=== PATIENT | female | born 1935 | race Caucasian/White ===

== ENCOUNTER 2020-07-21 08:59 | Inpatient (IN) | payer OTHER ==
[2020-07-21 09:35] LABS: BASOPHIL 0.2 % (0-2); EOSINOPHIL 0.1 % (0-7); HCT 42.3 % (37.0-47.0); HGB 13.8 g/dl (12.5-16.0); LYMPHOCYTE 6.2 % (15-48); MCH 31.3 pg (25.0-31.0); MCHC 32.6 g/dL (32.0-36.0); MCV 95.9 fL (78.0-100.0); MONOCYTE 6.8 % (0-12); MPV 11.5 fL (6.0-9.5); NRBC 0; PLT 176 K/uL (150-400); RBC 4.41 M/uL (4.20-5.40); RDW 14.9 % (11.5-14.0); WBC 13.4 K/uL (4.0-10.5)
[2020-07-21 09:46] LABS: INR 1.14 (0.9-1.2); PROTHROMBIN TIME 13.9 SECONDS (11.4-13.6); PTT 28.2 SECONDS (22.2-34.7)
[2020-07-21 09:53] LABS: BILIRUBIN NEGATIVE (NEGATIVE); BLOOD 1+ Ery/uL (NEGATIVE); CLARITY CLEAR (CLEAR); COLOR YELLOW (YELLOW); GLUCOSE (U) NORMAL (NORMAL); LEUKOCYTES NEGATIVE Leu/uL (NEGATIVE); NITRITE NEGATIVE (NEGATIVE); PROTEIN 2+ mg/dL (NEGATIVE); SPECIFIC GRAVITY 1.025 (1.001-1.030)
[2020-07-21 10:03] LABS: BACTERIA TRACE
[2020-07-21 10:06] LABS: ALBUMIN 3.6 g/dL (3.4-5.0); BILIRUBIN - TOTAL 0.9 mg/dL (0.2-1.0); BUN/CREAT RATIO (CALC) 37.9 RATIO; CREATININE 0.66 mg/dL (0.51-0.95); GLOBULIN (CALCULATION) 3.7 g/dL; POTASSIUM 4.5 mmol/L (3.5-5.1); TOTAL PROTEIN 7.3 g/dL (6.4-8.2)
[2020-07-21 10:11] LABS: CKMB 2.1 ng/mL (0.0-3.6); PRO-BNP 11312 pg/mL (<450)
[2020-07-21 10:21] LABS: LACTIC ACID 2.5 mmol/L (0.4-1.9)
[2020-07-21] MEDS ORDERED: Aspirin Chewable PO (13:37)
[2020-07-21] MEDS ORDERED: COLACE100 MG PO (13:37)
[2020-07-21] MEDS ORDERED: FLONASE ALLER15.8 ML (13:38)
[2020-07-21] MEDS ORDERED: MILK OF MA400 MG/5 M PO (13:39)
[2020-07-21] MEDS ORDERED: SYNTHROID25 MCG PO (13:40)
[2020-07-21] MEDS ORDERED: AQUAPHOR396 GM TOP (13:40)
[2020-07-21] MEDS ORDERED: MELATONIN5 M2 PO (13:40)
[2020-07-21] MEDS ORDERED: ACETAMINOPHEN325 MG PO (13:40)
[2020-07-21] MEDS ORDERED: PRILOSEC20 MG PO (13:41)
[2020-07-21] MEDS ORDERED: DEPAKOTE ER250 MG PO (13:42)
[2020-07-21] MEDS ORDERED: LASIX20 MG PO (13:42)
[2020-07-21] MEDS ORDERED: K-TAB ER10 MEQ PO (13:42)
[2020-07-21] MEDS ORDERED: VENTOLIN HFA IN18 GM INH ×2 (13:58→13:59)
[2020-07-21] MEDS ORDERED: LEXAPRO 10MG TA10 MG PO (13:59)
[2020-07-21] MEDS ORDERED: PRINIVIL10 MG PO (14:00)
[2020-07-21] MEDS ORDERED: METFORMIN HCL500 M1 PO (14:01)
[2020-07-21] MEDS ORDERED: VIBRAMYCIN100 MG PO (14:01)
[2020-07-21] MEDS ORDERED: FLORASTOR250 MG PO (14:02)
[2020-07-21] MEDS ORDERED: [UNRECOGNIZED DRUG - OTHER] EYEBOTH (14:03)
[2020-07-21] MEDS ORDERED: MYLANTA MAXIMU355 ML PO (14:04)
[2020-07-21] MEDS ORDERED: BARRIER TOP (14:06)
--- NOTE | 2020-07-21 18:35 | NUR ---
PT DC'd/TRANSFERRED TO [facility] VIA EMS W/ BELONGINGS; NO S/S OF PAIN/DISTRESS; VS STABLE; ON CARDIZEM DRIP @ 15ML/HR; 02 4LNC; LEFT FLOOR @ 1830
== END 2020-07-21 18:32 | disposition other institution (70) | DRG 871 ==
LOC: FER 08:59 → FICU 11:04
PROVIDERS: Emergency Medicine; ADMIT Allergy & Immunology Allergy
PROC: 5A09357 Assistance with Respiratory Ventilation, Less than 24 Consecutive Hours, Continuous Positive Airway Pressure (ICD-10-PCS; principal; 2020-07-21)
DX: A41.9 Sepsis, unspecified organism (principal); J18.9 Pneumonia, unspecified organism; J96.21 Acute and chronic respiratory failure with hypoxia; I48.91 Unspecified atrial fibrillation; E11.9 Type 2 diabetes mellitus without complications; Z20.822 Contact with and (suspected) exposure to COVID-19; E03.9 Hypothyroidism, unspecified; F41.9 Anxiety disorder, unspecified; F32.9 Major depressive disorder, single episode, unspecified; K21.9 Gastro-esophageal reflux disease without esophagitis; E78.5 Hyperlipidemia, unspecified; I11.0 Hypertensive heart disease with heart failure; I25.10 Atherosclerotic heart disease of native coronary artery without angina pectoris; I50.9 Heart failure, unspecified; J43.9 Emphysema, unspecified; J98.09 Other diseases of bronchus, not elsewhere classified; Z99.81 Dependence on supplemental oxygen; Z79.84 Long term (current) use of oral hypoglycemic drugs; Z79.899 Other long term (current) drug therapy; Z90.710 Acquired absence of both cervix and uterus; Z86.16 Personal history of COVID-19; Y95 Nosocomial condition; Z88.1 Allergy status to other antibiotic agents
CPT/HCPCS: 36415; 36600; 71045; 71260; 80053; 81001; 82553; 82803; 83036; 83605; 83880; 84145; 84443; 84484; 85025; 85610; 85730; 87040; 87070; 87205; 93005; 94660; 96365; 96366; 96368; 96375; C9113; J1650; J1940; J1956; J2543; J2920; J2930; J7050; Q9967; U0002